=== PATIENT | female | born 1945 | race Caucasian/White ===

== ENCOUNTER 2016-10-09 07:15 | Inpatient (IN) | payer OTHER ==
[2016-10-22] MEDS ORDERED: ceFAZolin 2 GM/DEXTROSE 100 ML IV ONE (06:00)
[2016-10-22] MEDS ORDERED: LIDOCAINE 1% 5 ML SDV ONE (06:04)
[2016-10-22] MEDS ORDERED: CEFAZOLIN 2 GM/DEXTROSE/100 ML BAG IV ONE (06:05)
[2016-10-22] MEDS ORDERED: THROMBIN (RECOMBINANT) 5,000 UNIT VIAL TP ONE (06:46)
[2016-10-22] MEDS ORDERED: BUPIVACAINE/EPI 0.25% 30 ML SDV ONE (06:46)
[2016-10-22] MEDS ORDERED: BACITRACIN 50,000 UNITS/10 ML SYR IRR ONE (06:47)
[2016-10-22] MEDS ORDERED: DIAZEPAM 10 MG/2 ML SYR IVP PRN (07:10)
[2016-10-22] MEDS ORDERED: HYDROmorphONE/DILAUDID 2 MG TAB PO PRN (07:10)
[2016-10-22] MEDS ORDERED: TEMAZEPAM 15 MG CAP PO PRN (07:10)
[2016-10-22] MEDS ORDERED: HYDROmorphONE/DILAUDID 1 MG/ML SYR IVP PRN (07:10)
[2016-10-22] MEDS ORDERED: METHOCARBAMOL 750 MG TAB PO PRN (07:10)
[2016-10-22] MEDS ORDERED: NALOXONE HCL 0.4 MG/ML INJ IVP PRN (07:10)
[2016-10-22] MEDS ORDERED: diphenhydrAMINE 25 MG CAP PO PRN (07:10)
[2016-10-22] MEDS ORDERED: BISACODYL 10 MG SUPP PR PRN (07:10)
[2016-10-22] MEDS ORDERED: DIAZEPAM 5 MG TAB PO PRN (07:10)
[2016-10-22] MEDS ORDERED: ONDANSETRON DISINTEGRATING 4 MG TAB PO PRN (07:10)
[2016-10-22] MEDS ORDERED: LACTULOSE 20 GM/30 ML UDCUP PO PRN (07:10)
[2016-10-22] MEDS ORDERED: HYDROmorphONE/DILAUDID 6 MG/30 ML PCA IV PRN (07:10)
[2016-10-22] MEDS ORDERED: POLYETHYLENE GLYCOL 3350 17 GM PKT PO PRN (07:10)
[2016-10-22] MEDS ORDERED: MAGNESIUM HYDROXIDE 30 ML UDCUP PO PRN (07:10)
[2016-10-22] MEDS ORDERED: ONDANSETRON 4 MG/2 ML VIAL IVP PRN (07:10)
[2016-10-22] MEDS ORDERED: NS W/ 20 KCl/L 1,000 ML IV SCH (07:15)
[2016-10-22] MEDS ORDERED: MIDAZOLAM 2 MG/2 ML VIAL ONE (07:21)
[2016-10-22] MEDS ORDERED: LIDOCAINE 2% 5 ML SDV ONE (07:21)
[2016-10-22] MEDS ORDERED: ROCURONIUM 50 MG/5 ML VIAL ONE (07:22)
[2016-10-22] MEDS ORDERED: fentaNYL 250 MCG/5 ML INJ ONE (07:23)
[2016-10-22] MEDS ORDERED: DEXAMETHASONE 4 MG/ML VIAL ONE ×3 (07:23→08:08)
[2016-10-22] MEDS ORDERED: ONDANSETRON 4 MG/2 ML VIAL ONE (07:23)
[2016-10-22] MEDS ORDERED: PROPOFOL/EMULSION 500 MG/50 ML BOTTLE IV ONE ×2 (07:24→09:33)
[2016-10-22] MEDS ORDERED: PHENYLEPHRINE HCL 100 MCG/ML SYR ONE (07:58)
[2016-10-22] MEDS ORDERED: REMIFENTANIL HCL 1 MG VIAL ONE (08:00)
[2016-10-22] MEDS ORDERED: PETROLAT,WHT/MIN OIL/SOD CHL 3.5 GM OPHT.OINT ONE (08:18)
[2016-10-22] MEDS ORDERED: epHEDrine SULFATE 10 MG/ML SYR ONE (08:22)
[2016-10-22] MEDS ORDERED: FAMOTIDINE 20 MG/NACL 50 ML IV SCH (09:00)
[2016-10-22] MEDS ORDERED: VASOPRESSIN 20 UNIT/ML VIAL ONE (09:21)
--- NOTE | 2016-10-22 11:22 | SOAPPROG ---
SOAP Progress Note Assessment/Plan: Post Op Visit S: Awake and alert. Pt with expected lower back pain O: AFVSS/PERRLA/EOMI no droop CN 2-12 grossly intact +lt touch 5/5 BUE/BLE = CDI MASON in place A/P: 70 yo female that is s/p TLIF at L4/5 -orders in place -call with any questions or concerns -pt seen by Dr Wiley as well 10/22/16 11:20 ICD10 Worksheet Patient Problems: Problems Problem Status Diagnosed Arthrodesis status Acute Lumbar radiculitis Acute Lumbar stenosis Acute - ICD10 Problem Qualifiers (1) Lumbar stenosis (2) Lumbar radiculitis (3) Arthrodesis status
[2016-10-22] MEDS ORDERED: fentaNYL 100 MCG/2 ML INJ ONE (11:31)
--- NOTE | 2016-10-22 12:22 | GOP ---
[f rep st] OPERATIVE REPORT DATE OF OPERATION: 10/22/2016 SURGEON: William Wiley MD NEGOTIATIONS DIRECTOR: Jayce Hammer PA-C PREOPERATIVE DIAGNOSIS: Lumbar spondylolisthesis L4-5, lumbar stenosis, lumbar foraminal stenosis at L4-5. There is severe lumbar disk degenerative disease at L2-3. There is also mild spondylolisthes is and facet arthropathy at L5-S. There is bilateral lumbosacral radiculopathy. POSTOPERATIVE DIAGNOSIS: Lumbar spondylolisthesis L4-5, lumbar stenosis, lumbar foraminal stenosis a t L4-5. There is severe lumbar disk degenerative disease at L2-3. There is also mild spondylolisthe sis and facet arthropathy at L5-S. There is bilateral lumbosacral radiculopathy. PROCEDURE PERFORMED: Posterolateral and intervertebral arthrodesis L4-5 with nonsegmental instrument ation across a single interspace (67603, [id number]), same incision bone graft harvest, spinal stereotaxy, placement of biomechanical intervertebral device at L4-5 without anchors, microscope. FINDINGS: ESTIMATED BLOOD LOSS: 200 cc. INDICATIONS: The patient is a 70-year-old with a long history of problems in the lower back with rad iating pain into both legs, now more equally, but used to be distributed asymmetrically. MRI demonst rated problems throughout the lumbar spine from L2-[address] the sacrum, but the worst le itzel by far was L4-5, where there was a significant grade 1 spondylolisthesis, facet arthropathy, and compression of the nerves in both foramen and lateral recesses at L4-5. The risk of adjacent segment degeneration was discussed, as well as the risk of nerve injury, spinal fluid leak. 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 She knew surgery may fail to give he r relief. The risk of vascular injury as well discuss, but this was quite low. She accepted the ris ks of surgery and she wanted to proceed. DESCRIPTION OF PROCEDURE: The patient was taken to the operating room, placed in a supine position. General anesthesia was begun. She was flipped prone on the Yaya table. Care was taken to pad al l points of contact. Back was sterilely prepped and draped in the usual fashion. The O-arm was intr oduced sterilely onto the field. SSEPs for the ulnars and median nerves were also monitored througho ut the surgery, and at the end of the case there was some difficulty with the left ulnar nerve, and t he arm was repositioned a few times, but throughout surgery we did not have any problems until the ve ry, very end of the case. We shot a localizing x-ray, made a midline incision. The subcutaneous tis edilberto was dissected using Bovie cautery down to the fascia and a subperiosteal dissection was made down the inferior lamina of L3. The lamina of L4-L5 were exposed. A localizing x-ray was taken. We den uded the bilateral L4-5 facet joints to create a posterolateral arthrodesis and expose the TPs of L4 and L5 which were also decorticated. We tested a Stealth reference frame to the L4 spinous process, and using frameless Stealth stereotaxy, placed pedicle screws bilaterally at L4 and L5. They all sti mulated at acceptable levels. We took 35 mm rods, distracted between the rods, and got reduction of the spondylolisthesis of L4 and L5 and locked the rods according to company specification in place. We then removed all the soft tissue from the L4-5 bones and then harvested the inferior L4 spinous pr ocess for autologous grafting purposes. We drilled bilateral laminas at L4, harvesting this for auto logous grafting purposes, introduced operating microscope, and decompressed the thecal sac. There wa s severe stenosis bilaterally. A nice decompression was obtained. We removed the complete IAP/SAP c omplex on the right hand side and decompressed the exiting L4 nerve root there. On the left, we perf ormed central and lateral recess decompressions, but did not unroof the foramen completely on the lef t side. We swept the thecal sac medially, removed the L4-5 disk from a right-sided approach, decorti cated the subchondral bone, and then inserted an expandable Elevate cage at L4-5. A 9 mm device was used. It was expanded under fluoroscopic guidance. Bone autograft and BMP were placed into the disk space. We then decorticated all the remaining posterolateral , posterolateral arthrodesi s, placed a subfascial drain, placed bone autograft and BMP posterolaterally bilaterally. A grand to jay of 2.0 mg was used on this case. A subfascial drain was placed. We closed the incision in multi ple layers using Vicryl sutures. A running PDS was placed in the skin. Steri-Strips were placed. T he patient was reversed from anesthesia, put back on the hospital bed, extubated, and transferred to the recovery room in stable condition. There were no complications. COMPLICATIONS: None. INSTRUMENTATION: [employer] Solera pedicle screw instrumentation with 4.75 mm tico system and a 9 mm x 28 mm expandable Elevate cage. /[id number]/MODL
[2016-10-22] MEDS ORDERED: DIAZEPAM 10 MG/2 ML SYR ONE (12:47)
[2016-10-22] MEDS: SENNOSIDES/DOCUSATE SODIUM TAB PO SCH ×2 (14:02→20:58)
--- NOTE | 2016-10-22 15:23 | DX ---
Intraoperative fluoroscopy. October 22, 2016. Discussion: 7.6 seconds of intraoperative fluoroscopy utilized by Dr. Alfa Wiley during lumbar spine surgery. Lateral matrix radiograph demonstrates performance of instrumentation and fusion at L4-L5 with bilate ral pedicle screws at both levels. Intervertebral disc height loss at L2-L3 is associated with mild d egenerative retrolisthesis of L2. IMPRESSION: 1. Intraoperative fluoroscopy during lumbar spine surgery.
[2016-10-22] MEDS: DOXYCYCLINE HYCLATE 75 MG PO SCH (20:55)
[2016-10-22] MEDS: FAMOTIDINE 20 MG TAB PO SCH (20:57)
[2016-10-22] MEDS: ACETAMINOPHEN 325 MG TAB PO PRN (20:58)
[2016-10-23] MEDS: ACETAMINOPHEN 325 MG TAB PO PRN ×3 (05:32→19:58)
[2016-10-23] MEDS: LEVOTHYROXINE 200 MCG TAB PO SCH (05:32)
--- NOTE | 2016-10-23 07:19 | NEUSURGPN ---
Assessment/Plan: S: Patient tired, doing well.Pain managed well currently on medications.Has right groin pain that was not there prior to surgery but no weakness. Has headache this morning. O: AFVSS +lt touch 5/5BLE = CDI MASON in place A/P: 70 yo female that is s/p TLIF at L4/5 -optimize pain management -Remove MASON -PT/OT -Brace when OOB -postop x-rays pending -DVT: TEDs, SCDs, Lovenox ok POD #2 -call with any questions or concerns -pt seen by Dr Wiley as well - Physician Discussed Patient with : Saurabh Patient Seen by : Saurabh Neurosurgery Physical Exam - Vitals, I&O, Labs I and O 10/22/16 10/23/16 10/24/16 05:59 05:59 05:59 Intake Total 4120 Output Total 1260 Balance 2860 Weight 86.183 kg Intake: Oral (ml) 670 IV Intake (ml) 2500 IV Infused (ml) 950 ceFAZolin 1 GM/DEXTROSE 50 50 ml @ 200 mls/hr IV Q8H DOM Rx#:[id number] NS W/ 20 KCl/L 1,000 ml @ 900 75 mls/hr IV CONT DOM Rx #:[id number] Output: Urine (ml) 1050 Bedside Commode 1050 Estimated Blood Loss (ml) 200 Wound Drainage (ml) 10 Back Yaya Rivera 10 Other: Number of Voids Bedside Commode 1 Vital Signs Temp Pulse Resp BP Pulse Ox 37.0 C 77 16 110/72 94 10/23/16 06:00 10/23/16 06:00 10/23/16 06:00 10/23/16 06:00 10/23/16 06:00 ICD10 Worksheet Patient Problems: Problems Problem Status Diagnosed Arthrodesis status Acute Lumbar radiculitis Acute Lumbar stenosis Acute
[2016-10-23] MEDS: DULoxetine 60 MG CAP PO SCH (08:19)
[2016-10-23] MEDS: PANTOPRAZOLE SODIUM 40 MG TAB PO SCH (08:20)
[2016-10-23] MEDS: FAMOTIDINE 20 MG TAB PO SCH ×2 (08:20→19:59)
[2016-10-23] MEDS: SENNOSIDES/DOCUSATE SODIUM TAB PO SCH ×2 (08:20→19:59)
[2016-10-23] MEDS: MODAFINIL 100 MG TAB PO SCH (08:20)
[2016-10-23] MEDS: DOXYCYCLINE HYCLATE 75 MG PO SCH ×2 (08:21→20:10)
[2016-10-23] MEDS ORDERED: traMADol 50 MG TAB PO PRN (11:19)
--- NOTE | 2016-10-24 00:42 | DX ---
Lumbar Spine, Two Views HISTORY: Postop L4-L5 fusion. COMPARISON: Preoperative study January 2016. FINDINGS: Bilateral transpedicular screws and fusion rods, with interbody disk hardware appearing in tact, with excellent alignment. No lumbar compression fractures. L2-L3 severe degenerative disk disease, with severe disk space narrowing, endplate sclerosis, and 5-m m retrolisthesis, similar to the previous study. L5-S1 demonstrates 6-mm anterolisthesis, with bilateral facet arthropathy. Left posterior paraspinal drain posterior to the left side of the sacrum. Mild levoscoliosis. IMPRESSION: L4-L5 diskectomy, with hardware demonstrating excellent alignment.
[2016-10-24] MEDS: ACETAMINOPHEN 325 MG TAB PO PRN ×2 (02:34→08:44)
[2016-10-24] MEDS: LEVOTHYROXINE 200 MCG TAB PO SCH (05:15)
[2016-10-24 07:57] VITALS: BP 127/76; PULSE 77; RESP 16; TEMP 98.5; O2SAT 98
[2016-10-24] MEDS: DULoxetine 60 MG CAP PO SCH (08:45)
[2016-10-24] MEDS: PANTOPRAZOLE SODIUM 40 MG TAB PO SCH (08:45)
[2016-10-24] MEDS: MODAFINIL 100 MG TAB PO SCH (08:45)
[2016-10-24] MEDS: FAMOTIDINE 20 MG TAB PO SCH (08:46)
[2016-10-24] MEDS: SENNOSIDES/DOCUSATE SODIUM TAB PO SCH (08:46)
[2016-10-24] MEDS: DOXYCYCLINE HYCLATE 75 MG PO SCH (08:54)
--- NOTE | 2016-10-24 10:03 | NEUSURGPN ---
Assessment/Plan: A/P: 70 yo female that is s/p TLIF at L4/5 POD#2 -optimize pain management, trial muscle relaxant, tramadol PRN - pt hesitant to take d/t concerns about constipation. Pain well managed with Tylenol -PT/OT -Brace when OOB -postop x-rays show stable hardware -DVT: TEDs, SCDs, Lovenox ok POD #2 -call with any questions or concerns -pt d/w Dr Wiley as well -Plan for DC to home later today pending clinical course Subjective: Pt resting in bedside chair. Hopeful to go home today. Objective: AAOx3 NAD VSS MAEx4 Motor 5/5 BLE Incision cdi +LT Urinary Catheter in Place: No - Physician Discussed Patient with : Saurabh Neurosurgery Physical Exam - Vitals, I&O, Labs I and O 10/23/16 10/24/16 10/25/16 05:59 05:59 05:59 Intake Total 4120 450 Output Total 1260 1350 Balance 2860 -900 Weight 86.183 kg Intake: Oral (ml) 670 450 IV Intake (ml) 2500 0 IV Infused (ml) 950 ceFAZolin 1 GM/DEXTROSE 50 50 ml @ 200 mls/hr IV Q8H DOM Rx#:[id number] NS W/ 20 KCl/L 1,000 ml @ 900 75 mls/hr IV CONT DOM Rx #:[id number] Output: Urine (ml) 1050 1350 Bedside Commode 1050 650 Toilet 700 Estimated Blood Loss (ml) 200 Wound Drainage (ml) 10 Back Yaya Rivera 10 Other: Intake Quantity Yes Sufficient Number of Voids Bedside Commode 1 Toilet 1 Vital Signs Temp Pulse Resp BP Pulse Ox 36.9 C 77 16 127/76 H 98 10/24/16 07:56 10/24/16 07:56 10/24/16 07:56 10/24/16 07:56 10/24/16 07:56 ICD10 Worksheet Patient Problems: Problems Problem Status Diagnosed Arthrodesis status Acute Lumbar radiculitis Acute Lumbar stenosis Acute
[2016-10-24] MEDS ORDERED: ESTRADIOL VIVELLE 0.025 MG PATCH TD SCH (21:00)
[2016-10-25] MEDS ORDERED: ENOXAPARIN 40 MG/0.4 ML SYR SC SCH (09:00)
== END 2016-10-24 13:42 | disposition home or self-care (01) | DRG 460 ==
LOC: F3N 10-22 05:58
PROVIDERS: ADMIT Neurological Surgery; ATTEND Neurological Surgery
PROC: 0SG00AJ Fusion of Lumbar Vertebral Joint with Interbody Fusion Device, Posterior Approach, Anterior Column, Open Approach (ICD-10-PCS; principal; 2016-10-22 07:30)
PROC: 3E0U0GB Introduction of Recombinant Bone Morphogenetic Protein into Joints, Open Approach (ICD-10-PCS; principal; 2016-10-22 07:30)
PROC: 0QB00ZZ Excision of Lumbar Vertebra, Open Approach (ICD-10-PCS; principal; 2016-10-22 07:30)
PROC: 01NB0ZZ Release Lumbar Nerve, Open Approach (ICD-10-PCS; principal; 2016-10-22 07:30)
DX: M43.16 Spondylolisthesis, lumbar region (principal); M48.06 Spinal stenosis, lumbar region; M51.16 Intervertebral disc disorders with radiculopathy, lumbar region; M47.26 Other spondylosis with radiculopathy, lumbar region
CPT/HCPCS: 97116-GP; 97162-GP; 97165-GO; 97535-GO; C1713; G8978-GP-CK; G8979-GP-CJ; G8987-GO-CK; G8988-GO-CI; J0690; J1100; J1170; J2250; J2370; J2405; J2704; J3010

== ENCOUNTER → 2017-03-23 | Outpatient (CLI) | payer OTHER, MEDICARE | LOC: FIMAGING 10:49 | PROVIDERS: ATTEND Family Medicine | DX: Z12.31 Encounter for screening mammogram for malignant neoplasm of breast (principal) | CPT/HCPCS: G0202 ==

== ENCOUNTER → 2017-04-30 | Outpatient (CLI) | payer OTHER, MEDICARE | LOC: FIMAGING 17:24 | PROVIDERS: ATTEND Family Medicine | DX: R22.41 Localized swelling, mass and lump, right lower limb (principal) ==

== ENCOUNTER → 2019-02-24 | Outpatient (CLI) | payer OTHER, MEDICARE | LOC: FIMAGING 15:34 | PROVIDERS: ATTEND Family Medicine | DX: Z12.31 Encounter for screening mammogram for malignant neoplasm of breast (principal) ==